=== PATIENT | male | born 1980 | race Asian ===

== ENCOUNTER 2017-11-14 15:17 | Emergency (ER) | payer OTHER | END 2017-11-14 15:57 | disposition home or self-care (01) | LOC: ER 15:57 | DX: S81.802A Unspecified open wound, left lower leg, initial encounter (principal); X58.XXXA Exposure to other specified factors, initial encounter; Y93.89 Activity, other specified; Y99.8 Other external cause status; Y92.89 Other specified places as the place of occurrence of the external cause | CPT/HCPCS: 99283 ==